=== PATIENT | male | born 1955 | race Caucasian/White ===

== ENCOUNTER → 2017-02-21 | Outpatient (CLI) | payer BC | END | disposition home or self-care (01) | LOC: C.PATHSPEC 17:19 | PROVIDERS: ATTEND Plastic Surgery | DX: C44.319 Basal cell carcinoma of skin of other parts of face (principal) ==

== ENCOUNTER 2020-12-29 19:12 | Inpatient (IN) ==
[2020-12-29] MEDS ORDERED: ALBUT/IPRATROP 3MG/0.5MG NEB 3 ML VIAL NEB ONE (21:24)
[2020-12-29] MEDS ORDERED: MAGNESIUM SULFATE / D5W 1 GM/100 ML BAG IV STA (21:25)
[2020-12-29] MEDS ORDERED: methylPREDNISolone 125 MG/2 ML VIAL IV STA (21:25)
[2020-12-29] MEDS ORDERED: ACETAMINOPHEN 500 MG TAB PO STA (21:40)
--- NOTE | 2020-12-29 21:41 | Emergency Department Note ---
Impression & Plan Community acquired bacterial pneumonia, Elevated troponin I level, Abnormal EKG, Elevated temperature ED Provider Note NAME: CHRISSY SUAREZ AGE: 65 SEX: M : 1955 ARRIVES VIA: Walk-In INFORMANT: Patient, ED PROVIDER(S): Nakul Bradshaw MD CHIEF COMPLAINT: Coughing HPI: This 65-year-old male who presents to the emergency department with chills and a cough that has been ongoing for the past 4 weeks. The patient reports he thought the cough was from swimming. He reports taking prednisone as well as a Z-Jon prescribed from his primary care physician for the coughing without any relief in the symptoms. The patient reports that talking makes his coughing worse and nothing seems to make it better. The patient has been taking honey as well as the prednisone and Z-Jon without any relief. The patient denies ever smoking. ROS: See above HPI for pertinent positives & negatives. A total of 10 systems reviewed and were otherwise negative. PAST MEDICAL HISTORY: See Below PAST SURGICAL HISTORY: See Below FAMILY HISTORY: See Below SOCIAL HISTORY: No smoking history HOME MEDICATIONS: See Below ALLERGIES: See Below VITALS: See Below PHYSICAL EXAMINATION: VITAL SIGNS - Vital signs and nursing notes were reviewed. GENERAL - 65-year-old male appearing stated age who is in no acute distress. Communicates well with provider and answers questions appropriately. SKIN - Without rashes. HEAD - NC/AT. EYES - PERRL with EOMI bilaterally. Sclera anicteric. Palpebral conjunctiva pink and moist with no injection noted. EARS - No deformities of external structures noted on gross examination bilaterally. NOSE - Midline and without cyanosis. No epistaxis or purulent drainage noted. Septum midline without deviation or septal hematoma noted. MOUTH/OROPHARYNX - Without perioral cyanosis. Buccal mucosa pink and moist and without leukoplakia. Tongue midline with equal elevation of palate bilaterally. No tonsillar hypertrophy, erythema, or exudates noted. dentition noted. NECK - Neck with FROM. Supple to palpation. LUNGS - Chest wall symmetric without accessory muscle use, intercostals retractions, or central cyanosis. Normal vesicular breath sounds CTA B/L. Wheezing present b/l at bases CARDIAC - RRR with S1/S2. No murmur, rubs, or gallops appreciated. ABDOMEN - Abdominal contour without pulsations or visible masses. BS normoactive all four quadrants. No tenderness, palpable masses, hepatosplenomegaly, or ascites noted. EXTREMITIES - No clubbing or peripheral cyanosis. No pretibial edema present. +3/5 radial, posterior tibial, and dorsalis pedis pulses palpated throughout. +5/5 strength noted in UE/LE bilaterally. NEUROLOGIC - Cranial nerves II through XII grossly intact. Sensory intact to light touch throughout. Patellar reflexes +2/4. PSYCH - A&Ox3 and cooperates fully with examiner. Pt is very pleasant and interacts well with examiner. MEDICAL DECISION MAKING: Patient was seen and evaluated as above in room C10. Review was performed of nursing notes and vital signs. I did review pertinent previous visits and patient history. After obtaining a thorough history and physical examination the above work up was performed. This 65-year-old male who presents emergency department with severe coughing that has not been getting better despite being on a Z-Jon as well as prednisone. The patient also has an elevation in his white blood cell count at 19,000 which may be consistent with steroid use as well as an elevation in his troponin. His EKG also shows dynamic changes. Based on this I do feel that the patient should be admitted to the hospital. Blood cultures were obtained and the patient was started on broad-spectrum antibiotics including Zosyn and Levaquin. I did discuss the case with the hospitalist service who did agree to admit the patient. Patient is in agreement with the treatment plan. Chest x-ray was interpreted by me and shows bilateral pneumonia. In addition CAT scan was also interpreted by me and is consistent with pneumonia An order was placed for continuous cardiac monitoring. The monitor shows a rate of 84 with Normal SInus rhythm. The patient was evaluated during a period of high volume and high acuity during the global COVID-19 pandemic, and that diagnosis was suspected/considered upon their initial presentation. Their evaluation, treatment and testing was consistent with current guidelines for patients who present with complaints or symptoms that may be related to COVID-19. Patient was seen while provider was wearing PPE. Triage Nursing notes reviewed. Prior medical records reviewed Vital Signs: reviewed and remarkable for fever Differential diagnosis: Reactive airway disease, pneumonia, pneumothorax, COPD, CHF, infections, cardiac ischemia, pulmonary embolism, musculoskeletal, gastrointestinal, as well as other pathologies. ER treatment provided: See below Diagnostics interpreted by me: ECG: EKG shows normal sinus rhythm left axis deviation ST depressions in the lateral leads QTC is 452 ventricular rate is 96 EKG is compared to 02/07/2008 ventricular rate has increased by 47 Laboratory studies: As stated above and show below. Imaging studies: See below Consultation(s): Internal Medicine Past Med/Surg History Social History Smoking Status: Never smoker Hx Alcohol Use: Yes Alcohol type: beer Hx Substance Use: No Preferred Language: Kyrgyz Communication Ability: Effective Load Out Worker Required: No Beliefs That Will Affect Care: None Current Living Situation: Spouse Other Information That Helps Us Care for You: No Feels Safe at Home: Yes Safety Concerns: Feels Safe At This Time Assistive Devices: Glasses Allergies Allergies Allergy/AdvReac Type Severity Reaction Status Date / Time POLLEN Allergy Intermediate ITCHY Uncoded 12/29/20 22:22 EYES, SNEEZING, CONGESTION Home Meds Home Medications Medication Instructions Recorded Confirmed azithromycin 250 mg tablet 250 mg PO DAILY 12/29/20 12/29/20 ibuprofen 200 mg tablet (Advil) 200 mg PO DIRECTED PRN 12/29/20 12/29/20 loratadine 10 mg tablet (Claritin) 10 mg PO DAILY 12/29/20 12/29/20 prednisone 20 mg tablet 0 mg PO DIRECTED 12/29/20 12/29/20 Results & Data (ED) Vital Signs Vital Signs - 24 hr 12/29/20 21:25 12/29/20 21:34 12/29/20 21:47 Temperature 38.3 C H Temperature Source Oral Pulse Rate 80 Pulse Rate [Apical] 84 80 Pulse Rate from SpO2 Sensor 81 Respiratory Rate 20 26 H 18 Respiratory Effort / Characteristics Non-Labored Spontaneous Respiratory Depth Normal Blood Pressure 153/76 H Blood Pressure [Right Arm] 153/84 H Blood Pressure Mean 101 Blood Pressure Mean [Right Arm] 107 Pulse Oximetry 96 97 95 Oxygen Delivery Method Room Air Room Air Laboratory Data Result diagrams: 12/30/20 04:50 12/30/20 04:50 Lab Results 12/29/20 12/29/20 12/29/20 Range/Units 21:35 21:35 22:30 WBC 18.99 H (4.8-10.8) K/uL RBC 4.94 (4.7-6.1) M/uL Hgb 16.0 (14.0-18.0) g/dL Hct 45.5 (42-52) % MCV 92.1 (80-100) fL MCH 32.4 (25-34) pg MCHC 35.2 (32-36) g/dL RDW Std Deviation 45.1 (36.4-46.3) fL RDW Coeff of Shane 13.5 (11.5-14.5) % Plt Count 220 (130-400) K/uL MPV 11.3 H (7.4-10.4) fL Immature Gran % (Auto) 0.3 % Neut % (Auto) 89.7 % Lymph % (Auto) 5.1 % Montgomery % (Auto) 4.7 % Eos % (Auto) 0.2 % Baso % (Auto) 0.0 % Neut # (Auto) 17.03 H (1.4-6.5) K/uL Lymph # (Auto) 0.97 L (1.2-3.4) K/uL Montgomery # (Auto) 0.90 H (0.11-0.59) K/uL Eos # (Auto) 0.03 (0-0.5) K/uL Baso # (Auto) 0.00 (0-0.2) K/uL Immature Gran # (Auto) 0.06 H (0.00-0.02) K/uL Sodium 140 (136-145) mmol/L Potassium 3.6 (3.5-5.1) mmol/L Chloride 104 (98-107) mmol/L Carbon Dioxide 32 (21-32) mmol/L Anion Gap 4.0 (3-11) BUN 20 H (7-18) mg/dl Creatinine 1.24 (0.6-1.4) mg/dl Est Cr Clr Drug Dosing 70.9 ml/min Est GFR ( Amer) 71.3 ml/min Est GFR (Non-Af Amer) 61.5 ml/min BUN/Creatinine Ratio 16.0 (10-20) Glucose 86 (70-99) mg/dl Calcium 9.7 (8.5-10.1) mg/dl Total Bilirubin 0.6 (0.2-1) mg/dl AST 18 (15-37) U/L ALT 74 (12-78) U/L Alkaline Phosphatase 57 (45-117) U/L Troponin I 0.174 H* (0-0.045) ng/ml NT-Pro-B Natriuret Pep 463 (0-900) pg/ml Total Protein 7.0 (6.4-8.2) gm/dl Albumin 4.0 (3.4-5.0) gm/dl Globulin 3.0 (2.5-4.0) gm/dl Albumin/Globulin Ratio 1.3 (0.9-2) COVID-19 Eval Order Covid19 at [facility] SARS-CoV-2 (PCR) (Negative) 12/29/20 Range/Units 22:30 WBC (4.8-10.8) K/uL RBC (4.7-6.1) M/uL Hgb (14.0-18.0) g/dL Hct (42-52) % MCV (80-100) fL MCH (25-34) pg MCHC (32-36) g/dL RDW Std Deviation (36.4-46.3) fL RDW Coeff of Shane (11.5-14.5) % Plt Count (130-400) K/uL MPV (7.4-10.4) fL Immature Gran % (Auto) % Neut % (Auto) % Lymph % (Auto) % Montgomery % (Auto) % Eos % (Auto) % Baso % (Auto) % Neut # (Auto) (1.4-6.5) K/uL Lymph # (Auto) (1.2-3.4) K/uL Montgomery # (Auto) (0.11-0.59) K/uL Eos # (Auto) (0-0.5) K/uL Baso # (Auto) (0-0.2) K/uL Immature Gran # (Auto) (0.00-0.02) K/uL Sodium (136-145) mmol/L Potassium (3.5-5.1) mmol/L Chloride (98-107) mmol/L Carbon Dioxide (21-32) mmol/L Anion Gap (3-11) BUN (7-18) mg/dl Creatinine (0.6-1.4) mg/dl Est Cr Clr Drug Dosing ml/min Est GFR ( Amer) ml/min Est GFR (Non-Af Amer) ml/min BUN/Creatinine Ratio (10-20) Glucose (70-99) mg/dl Calcium (8.5-10.1) mg/dl Total Bilirubin (0.2-1) mg/dl AST (15-37) U/L ALT (12-78) U/L Alkaline Phosphatase (45-117) U/L Troponin I (0-0.045) ng/ml NT-Pro-B Natriuret Pep (0-900) pg/ml Total Protein (6.4-8.2) gm/dl Albumin (3.4-5.0) gm/dl Globulin (2.5-4.0) gm/dl Albumin/Globulin Ratio (0.9-2) COVID-19 Eval Order SARS-CoV-2 (PCR) NEGATIVE (Negative) Administered Medications Guaifenesin (Guaifenesin 600 Mg Tabcr) 600 mg PO Q12 OZ Stop: 01/29/21 08:59 Last Admin: 12/30/20 20:10 Dose: 600 mg Documented by: [id number] Admin: 12/30/20 08:32 Dose: 600 mg Documented by: [id number] Ceftriaxone Sodium 2,000 mg/ (Dextrose) 70 mls @ 140 mls/hr IV DAILY OZ; Protocol Stop: 01/06/21 08:59 Last Infusion: 12/30/20 10:41 Dose: 0 mls/hr Documented by: [id number] Admin: 12/30/20 08:32 Dose: 140 mls/hr Documented by: [id number] Loratadine (Loratadine 10 Mg Tab) 10 mg PO DAILY OZ Stop: 01/29/21 08:59 Last Admin: 12/30/20 08:32 Dose: 10 mg Documented by: [id number] Metoprolol Succinate (Metoprolol Succ 25mg Ext Rel Tab) 25 mg PO BID OZ Stop: 01/29/21 08:59 Last Admin: 12/30/20 20:10 Dose: 25 mg Documented by: [id number] Admin: 12/30/20 08:32 Dose: 25 mg Documented by: [id number] Discontinued Medications Acetaminophen (Acetaminophen 500 Mg Tab) 1,000 mg PO NOW STA Stop: 12/29/20 21:41 Last Admin: 12/29/20 22:26 Dose: 1,000 mg Documented by: [id number] Albuterol (Albut/Ipratrop 3mg/0.5mg Neb 3 Ml Vial) 12 ml NEB ONE ONE Stop: 12/29/20 21:25 Last Admin: 12/29/20 21:47 Dose: 12 ml Documented by: [id number] Albuterol (Albuterol Hfa 8 Gm Inhaler) 2 puffs INH NOW ONE Stop: 12/29/20 22:33 Last Admin: 12/30/20 00:14 Dose: 2 puffs Documented by: [id number] Albuterol (Albut/Ipratrop 3mg/0.5mg Neb 3 Ml Vial) 3 ml NEB QIDR OZ Stop: 01/29/21 06:59 Last Admin: 12/30/20 11:32 Dose: 3 ml Documented by: [id number] Admin: 12/30/20 07:35 Dose: 3 ml Documented by: [id number] Magnesium Sulfate/Dextrose (Magnesium Sulfate / D5w) 1 gm in 100 mls @ 100 mls/hr IV NOW STA Stop: 12/29/20 22:24 Last Infusion: 12/30/20 00:14 Dose: 0 mls/hr Documented by: [id number] Admin: 12/29/20 22:26 Dose: 100 mls/hr Documented by: [id number] Methylprednisolone 40 mg/ (Syringe) 0.64 mls @ 1.5 mls/min IV Q8H [facility] Stop: 01/29/21 05:59 Last Admin: 12/30/20 14:53 Dose: 1.5 mls/min Documented by: [id number] Admin: 12/30/20 05:39 Dose: 1.5 mls/min Documented by: [id number] Ioversol (Optiray 320 125ml) 125 ml IV ONCE ONE Stop: 12/30/20 00:50 Last Admin: 12/30/20 00:49 Dose: 90 ml Documented by: [id number] Levofloxacin (Levofloxacin 750 Mg Tab) 750 mg PO ONE ONE Stop: 12/29/20 22:32 Last Admin: 12/30/20 00:14 Dose: 750 mg Documented by: [id number] Methylprednisolone (Methylprednisolone 125 Mg/2 Ml Vial) 125 mg IV NOW STA Stop: 12/29/20 21:26 Last Admin: 12/29/20 22:26 Dose: 125 mg Documented by: [id number] Metoprolol Succinate (Metoprolol Succ 25mg Ext Rel Tab) 25 mg PO NOW STA Stop: 12/30/20 01:30 Last Admin: 12/30/20 02:14 Dose: 25 mg Documented by: [id number] Discharge Plan Visit Data Chief Complaint: Cough Stated Complaint: cough, fever ED Provider: Nakul Bradshaw Discharge Problem: Community acquired bacterial pneumonia, Elevated troponin I level, Abnormal EKG, Elevated temperature Patient Disposition: Admitted As Inpatient Discharge Instructions Interventions: ED Discharge Assessment Last Done: 12/30/20 00:23
[2020-12-29 22:08] LABS: Calcium 9.7 mg/dl (8.5-10.1); Creatinine Clr Calc Pharmacy 70.9 ml/min; Est GFR (African American) 71.3 ml/min; Est GFR (Non-African American) 61.5 ml/min; Potassium 3.6 mmol/L (3.5-5.1)
[2020-12-29 22:09] LABS: Eosinophils # (auto) 0.03 K/uL (0-0.5); Eosinophils % (auto) 0.2 %; Hematocrit (blood only) 45.5 % (42-52); Immature Granulocytes # (auto) 0.06 K/uL (0.00-0.02); Immature Granulocytes % (auto) 0.3 %; Lymphocytes # (auto) 0.97 K/uL (1.2-3.4); Lymphocytes % (auto) 5.1 %; Mean Corpuscular Hemoglobin 32.4 pg (25-34); Mean Corpuscular Hgb Conc 35.2 g/dL (32-36); Mean Corpuscular Volume 92.1 fL (80-100); Mean Platelet Volume 11.3 fL (7.4-10.4); Monocytes % (auto) 4.7 %; Neutrophils # (auto) 17.03 K/uL (1.4-6.5); Neutrophils % (auto) 89.7 %; Platelet Count 220 K/uL (130-400); RDW Coefficient of Variation 13.5 % (11.5-14.5); RDW Standard Deviation 45.1 fL (36.4-46.3); Red Blood Count 4.94 M/uL (4.7-6.1); White Blood Count 18.99 K/uL (4.8-10.8)
[2020-12-29 22:10] LABS: Albumin Globulin Ratio 1.3 (0.9-2); Bilirubin,Total 0.6 mg/dl (0.2-1)
[2020-12-29] MEDS ORDERED: levoFLOXacin 750 MG TAB PO ONE (22:31)
[2020-12-29] MEDS ORDERED: ALBUTEROL HFA 8 GM INHALER INH ONE (22:32)
[2020-12-29 23:00] LABS: Troponin I 0.174 ng/ml (0-0.045)
--- NOTE | 2020-12-29 23:51 | History & Physical Report ---
Date of Service December 29, 2020 Assessment & Plan (1) Elevated troponin I level: Plan: Elevated troponin I level/abnormal EKG- EKG with ST depressions laterally Troponin 0.174 upon admission The patient will be admitted to telemetry for serial cardiac enzymes, serial E KG's, cardiac rhythm monitoring and a 2-D echocardiogram with Dopplers. Aspirin 81 mg daily Metoprolol succinate 25 mg p.o. twice daily, with first dose tonight (2) Abnormal EKG: Plan: See above (3) Upper respiratory infection: Plan: Ceftriaxone 2 g IV daily Levofloxacin 500 mg IV daily Methylprednisolone 40 mg IV every 8 hours Duonebs every 4 hours while awake and every 2 hours when necessary. Guaifenesin extended release 600 mg p.o. twice daily Hycodan syrup 5 mils p.o. every 4 hours as needed cough Of note, patient was COVID-19 negative in the ED Consult cardiology (4) Elevated temperature: Plan: Most likely cause at this point is upper respiratory infection History of Present Illness Chief Complaint: The patient presents to the emergency department with acute worsening of generalized myalgias, weakness and cough this morning, with original symptoms beginning about 4 weeks ago. Primary Care Provider: Uday Malave Jr, DO The patient is a 65-year-old male with a past medical history including allergic rhinitis, who presents to the emergency department with 4 weeks of intermittent chills, cough, generalized myalgias did not respond to prednisone and azithromycin started last week, and actually worsened this morning. He denies any recent travels or sick exposures. He does not remember any illness like this in the past. He denies any associated chest pain. Pertinent laboratories in the emergency department: WBC 18.99 with left shift, troponin 0.174, COVID-19 negative. Maximum temperature in the ED was 100.9 F Imaging studies included chest x-ray and CT angiography of chest: No evidence for PE, pleural effusion or pneumothorax. No pericardial effusion no significant mediastinal or hilar lymphadenopathy. EKG showed normal sinus rhythm at 96 bpm, with incomplete right bundle branch block, and ST depressions in leads V4 through V6, and less so 1 and aVL. Allergies Allergy/AdvReac Type Severity Reaction Status Date / Time POLLEN Allergy Intermediate ITCHY Uncoded 12/29/20 22:22 EYES, SNEEZING, CONGESTION Home Medications Medication Instructions Recorded Confirmed Type azithromycin 250 mg tablet 250 mg PO DAILY 12/29/20 12/29/20 History ibuprofen 200 mg tablet (Advil) 200 mg PO DIRECTED PRN 12/29/20 12/29/20 History loratadine 10 mg tablet (Claritin) 10 mg PO DAILY 12/29/20 12/29/20 History prednisone 20 mg tablet 0 mg PO DIRECTED 12/29/20 12/29/20 History Past Med/Surg History Social History Smoking Status: Never smoker Hx Alcohol Use: Yes Alcohol type: beer Hx Substance Use: No Preferred Language: Korean Communication Ability: Effective Oral Communication Instructor Required: No Beliefs That Will Affect Care: None Current Living Situation: Spouse Other Information That Helps Us Care for You: No Feels Safe at Home: Yes Safety Concerns: Feels Safe At This Time Assistive Devices: Glasses Review of Systems Review of Systems: The patient denies chest pain, palpitations, lower extr emity swelling, sore throat, sweats, weight change, nausea, vomiting, diarrhea , constipation, abdominal pain, pelvic pain, blood in urine or stool, dysuria, urinary frequency or urgency, lightheadedness, dizziness, headache, memory loss, loss of consciousness, rash, abnormal bruising or bleeding, imbalance, focal or generalized weakness, numbness or tingling in arms or legs, back or neck pain, or night sweats. The review of systems is otherwise negative other than for that already noted above, and at least 10 systems have been reviewed. Physical Exam Physical Exam: The patient is awake, alert and oriented 3, well developed and well nourished, normocephalic and atraumatic, lying in bed and in no acute distress, with intermittent nonproductive cough HEENT--PERRL, EOMI, mucous membranes and oropharynx mildly dry. Neck--supple. No JVD. No bruits. Thyroid normal, trachea midline, no adenopathy. Heart--normal S1 and S2. No murmurs, rubs or gallops. Lungs--clear bilaterally, no respiratory distress, no accessory muscle use. Abdomen--normal bowel sounds and soft. Nontender. Nondistended, no hernias or masses, no organomegaly. Extremities--no cyanosis or clubbing. No edema. Dermatologic--normal skin turgor, normal color, no abnormal lymph nodes, no rash. Neurologic--cranial nerves II through XII grossly intact. Rheumatologic--normal range of motion. Psychiatric--normal affect. Results & Data Results & Data ([facility]) Vital Signs (Past 12 Hours) Vital Signs Temp Pulse Pulse Resp BP BP Pulse Ox 12/29/20 21:47 80 18 95 12/29/20 21:34 80 26 H 153/76 H 97 12/29/20 21:25 100.9 F H 84 20 153/84 H 96 12/29/20 19:14 99.3 F 92 H 20 134/80 96 Laboratory Results Laboratory Results WBC 18.99 K/uL (4.8-10.8) H 12/29/20 21:35 RBC 4.94 M/uL (4.7-6.1) 12/29/20 21:35 Hgb 16.0 g/dL (14.0-18.0) 12/29/20 21:35 Hct 45.5 % (42-52) 12/29/20 21:35 MCV 92.1 fL (80-100) 12/29/20 21:35 MCH 32.4 pg (25-34) 12/29/20 21:35 MCHC 35.2 g/dL (32-36) 12/29/20 21:35 RDW Std Deviation 45.1 fL (36.4-46.3) 12/29/20 21:35 RDW Coeff of Shane 13.5 % (11.5-14.5) 12/29/20 21:35 Plt Count 220 K/uL (130-400) 12/29/20 21:35 MPV 11.3 fL (7.4-10.4) H 12/29/20 21:35 Immature Gran % (Auto) 0.3 % 12/29/20 21:35 Neut % (Auto) 89.7 % 12/29/20 21:35 Lymph % (Auto) 5.1 % 12/29/20 21:35 [place] % (Auto) 4.7 % 12/29/20 21:35 Eos % (Auto) 0.2 % 12/29/20 21:35 Baso % (Auto) 0.0 % 12/29/20 21:35 Neut # (Auto) 17.03 K/uL (1.4-6.5) H 12/29/20 21:35 Lymph # (Auto) 0.97 K/uL (1.2-3.4) L 12/29/20 21:35 [place] # (Auto) 0.90 K/uL (0.11-0.59) H 12/29/20 21:35 Eos # (Auto) 0.03 K/uL (0-0.5) 12/29/20 21:35 Baso # (Auto) 0.00 K/uL (0-0.2) 12/29/20 21:35 Immature Gran # (Auto) 0.06 K/uL (0.00-0.02) H 12/29/20 21:35 Sodium 140 mmol/L (136-145) 12/29/20 21:35 Potassium 3.6 mmol/L (3.5-5.1) 12/29/20 21:35 Chloride 104 mmol/L (98-107) 12/29/20 21:35 Carbon Dioxide 32 mmol/L (21-32) 12/29/20 21:35 Anion Gap 4.0 (3-11) 12/29/20 21:35 BUN 20 mg/dl (7-18) H 12/29/20 21:35 Creatinine 1.24 mg/dl (0.6-1.4) 12/29/20 21:35 Est Cr Clr Drug Dosing 70.9 ml/min 12/29/20 21:35 Est GFR ( Amer) 71.3 ml/min 12/29/20 21:35 Est GFR (Non-Af Amer) 61.5 ml/min 12/29/20 21:35 BUN/Creatinine Ratio 16.0 (10-20) 12/29/20 21:35 Glucose 86 mg/dl (70-99) 12/29/20 21:35 Calcium 9.7 mg/dl (8.5-10.1) 12/29/20 21:35 Total Bilirubin 0.6 mg/dl (0.2-1) 12/29/20 21:35 AST 18 U/L (15-37) 12/29/20 21:35 ALT 74 U/L (12-78) 12/29/20 21:35 Alkaline Phosphatase 57 U/L (45-117) 12/29/20 21:35 Troponin I 0.174 ng/ml (0-0.045) H* 12/29/20 21:35 NT-Pro-B Natriuret Pep 463 pg/ml (0-900) 12/29/20 21:35 Total Protein 7.0 gm/dl (6.4-8.2) 12/29/20 21:35 Albumin 4.0 gm/dl (3.4-5.0) 12/29/20 21:35 Globulin 3.0 gm/dl (2.5-4.0) 12/29/20 21:35 Albumin/Globulin Ratio 1.3 (0.9-2) 12/29/20 21:35 COVID-19 Eval Order Covid19 at [facility] 12/29/20 22:30 SARS-CoV-2 (PCR) NEGATIVE (Negative) 12/29/20 22:30 Diagnostic Findings [facility] Patient: CHRISSY SUAREZ (Male) : 59 Status: IP Date: 12/30/20 00:53 Room #: 109 History: DRY COUGH FOR ONE MONTH, R/O PE Slices: [id number] Priors: Tech: Yuri Kyle @ [phone] Exams: CTA CHEST Contrast: IV Amt: 90 ML OPTIRAY 320 Accession Numbers: [id number] Referring Physician: REFERRED SELF Preliminary Findings Only See Final Report For Complete Findings CTA CHEST: No evidence for pulmonary embolism. Curvilinear subsegmental changes in the posterior lung bases are presumed atelectasis. Infection is considered less likely. No pleural effusion or pneumothorax. The thoracic aorta and cardiac chambers are unremarkable. No pericardial effusion. No significant mediastinal or hilar adenopathy. No acute osseous or significant overlying soft tissue abnormality. Radiologist: Phil Bhat MD Study ready at 01:01 and initial results transmitted at 01:08 Results also transmitted to 1st Floor ICU @ [phone] (Fax) *This report constitutes a preliminary interpretation only. Non-acute findings felt to be unrelated to the clinical presentation may not be discussed in this report. The study will be interpreted and a final report will be generated by the local Radiologist the following shift. To reach the hospital radiology department call [phone]. If a discrepancy is found between the preliminary and final interpretations of this study, please notify us via our Client Portal at [email or web address].You can also fax this report with a description of the discrepancy, or include the final report, to our daytime fax number [phone].If faxing, please indicate the severity of discrepancy using one of the following categories: [ ] 1 - Agree/Informational [ ] 2 - Unlikely to Affect Management [ ] 3 - Possible Eventual Change of Management [ ] 4 - Probable Immediate Change of Management For all other patient related information, please fax us at [phone]. [id number] [phone] ECG Additional Comments: CHRISSY SUAREZ ID:[id number] 29-DEC-2020 22:59:05 [facility]- EDSTAT ROUTINE RETRIEVAL Normal sinus rhythm Left axis deviation Incomplete right bundle branch block Nonspecific ST abnormality Abnormal ECG When compared with ECG of 07-FEB-2008 23:47, Vent. rate has increased BY 47 BPM Incomplete right bundle branch block is now Present 25mm/s 10mm/mV 150Hz 9.0.9 12SL 241 HD VITA: 12 Referred by: REFERRED SELF Unconfirmed Vent. rate 96 BPM IA interval 184 ms QRS duration 110 ms QT/QTc 358/452 ms P-R-T axes 30 -30 23 1955 (65 yr) Male 1in Room: Loc:15 Refrigeration Repair Supervisor:Katheryn Pedersen Code Status & VTE Plan Code Status Full code VTE Prophylaxis Plan VTE Prophylaxis will be ordered: Yes PG Care Time/CCT Total # of Minutes Spent Total Time Spent with Patient: Total time spent is greater than 50% in coordination of care (as documented) at patient's floor/unit and/or counseling patient: Coding Level of Care Code 80085 Initial Inpt Care Lvl 3 Diagnoses Elevated troponin I level R77.8 Abnormal EKG R94.31 Elevated temperature R50.9 Upper respiratory infection J06.9
[2020-12-30] MEDS ORDERED: HYDROcodone/HOMATROPINE SYRUP 5MG/1.5MG 5ML UDP PO PRN (00:07)
[2020-12-30] MEDS ORDERED: OPTIRAY 320 125ml IV ONE (00:49)
[2020-12-30] MEDS ORDERED: ACETAMINOPHEN 325 MG TAB PO PRN (01:10)
[2020-12-30] MEDS ORDERED: NITROGLYCERIN SL 0.4 MG/TAB TAB SL PRN (01:10)
[2020-12-30] MEDS ORDERED: ONDANSETRON INJ 2 MG/ML 2 ML VIAL IV PRN (01:10)
[2020-12-30] MEDS ORDERED: METOPROLOL SUCC 25MG EXT REL TAB PO STA (01:29)
[2020-12-30 05:09] LABS: Hematocrit (blood only) 42.8 % (42-52); Mean Corpuscular Hemoglobin 32.1 pg (25-34); Mean Corpuscular Volume 91.6 fL (80-100); Platelet Count 202 K/uL (130-400); RDW Coefficient of Variation 13.6 % (11.5-14.5); RDW Standard Deviation 44.9 fL (36.4-46.3); Red Blood Count 4.67 M/uL (4.7-6.1); White Blood Count 23.65 K/uL (4.8-10.8)
[2020-12-30 05:28] LABS: Basophils # (auto) 0.01 K/uL (0-0.2); Immature Granulocytes # (auto) 0.08 K/uL (0.00-0.02); Immature Granulocytes % (auto) 0.3 %; Lymphocytes # (auto) 0.51 K/uL (1.2-3.4); Lymphocytes % (auto) 2.2 %; Monocytes # (auto) 0.56 K/uL (0.11-0.59); Monocytes % (auto) 2.4 %; Neutrophils # (auto) 22.49 K/uL (1.4-6.5); Neutrophils % (auto) 95.1 %; RBC Morphology Unremarkable
[2020-12-30 05:38] LABS: Albumin Level 3.7 gm/dl (3.4-5.0); BUN Creatinine Ratio 14.1 (10-20); Creatinine Clr Calc Pharmacy 76.4 ml/min; Est GFR (African American) 78.1 ml/min; Est GFR (Non-African American) 67.4 ml/min; Magnesium 2.3 mg/dl (1.8-2.4); Potassium 4.2 mmol/L (3.5-5.1)
[2020-12-30] MEDS: methylPREDNISolone 40 MG in SYRINGE 0 ML IV SCH ×2 (05:39→14:53)
[2020-12-30 05:42] LABS: Albumin Globulin Ratio 1.3 (0.9-2); Bilirubin,Total 0.7 mg/dl (0.2-1); Globulin 2.9 gm/dl (2.5-4.0); Total Protein 6.6 gm/dl (6.4-8.2); Troponin I 0.106 ng/ml (0-0.045)
[2020-12-30] MEDS: ALBUT/IPRATROP 3MG/0.5MG NEB 3 ML VIAL NEB SCH ×2 (07:35→11:32)
--- NOTE | 2020-12-30 08:01 | XRay Report ---
SINGLE VIEW CHEST CLINICAL HISTORY: Wheezing. FINDINGS: An AP, portable, upright chest radiograph is compared to study dated 12/29/2010. The heart i s enlarged. The pulmonary vasculature is noncongested. There is elevation of the right hemidiaphragm with bibasilar airspace opacities. No large pleural effusion or pneumothorax is seen. The skeletal st ructures are osteopenic. The bony thorax is grossly intact. IMPRESSION: 1. Cardiomegaly without radiographic evidence of congestive failure. 2. Bibasilar airspace opacities likely represent scarring/atelectasis. Correlate clinically for evide nce of a superimposed infectious/inflammatory pneumonitis. ACT 112: Negative or not required by law. Electronically signed by: Chace Dow M.D. 12/30/2020 8:00 AM
[2020-12-30] MEDS: LORATADINE 10 MG TAB PO SCH (08:32)
[2020-12-30] MEDS: guaiFENesin 600 MG TABCR PO SCH ×2 (08:32→20:10)
[2020-12-30] MEDS: cefTRIAXone SODIUM 2,000 MG in DEXTROSE 5% 50 ML IV SCH (08:32)
[2020-12-30] MEDS: METOPROLOL SUCC 25MG EXT REL TAB PO SCH ×2 (08:32→20:10)
--- NOTE | 2020-12-30 08:42 | CT Scan Report ---
CT ANGIOGRAM OF THE CHEST CLINICAL HISTORY: Cough and wheezing. COMPARISON STUDY: Chest x-ray dated 12/29/2020. TECHNIQUE: Following the IV administration of 90 cc of Optiray 320, CT angiogram of the chest was per formed from the upper abdomen to the thoracic inlet utilizing the pulmonary embolus protocol. Images are reviewed in the axial, sagittal, and coronal planes. 3-D MIPS images are created and assessed. IV contrast was administered without complication. A dose lowering technique was utilized adhering to the principles of ALARA. CT DOSE: 341.59 mGy.cm FINDINGS: Thyroid: Imaged portions of the thyroid gland are normal in size and attenuation. Thoracic aorta: The thoracic aorta is normal in caliber and demonstrates standard 3-vessel arch anato my. No dissection is seen. Pulmonary vasculature: The pulmonary trunk is normal in caliber. There are no filling defects identif ied in main, lobar, or segmental pulmonary branches to suggest pulmonary embolus. Heart: The heart enlarged and without pericardial effusion. There are coronary artery calcifications. Lungs and pleural spaces: There is elevation of the right hemidiaphragm. Dependent airspace opacities likely represent scarring/atelectasis. No pleural effusion is identified. The trachea and central ai rways are clear. Mediastinum: There is no mediastinal lymphadenopathy. Deborah: Clear. Axillae: There is no axillary lymphadenopathy. Upper abdomen: Diverticulosis is noted in the partially imaged left colon. There is a tiny hiatal her jose alejandro. Skeletal structures: No lytic or blastic bony lesions are seen. IMPRESSION: 1. There is no evidence of pulmonary embolus in the main, lobar, or segmental pulmonary arteries. 2. Cardiomegaly and coronary artery calcification. 3. Dependent airspace opacities likely represent scarring/atelectasis. Clinical correlation will be r equired. 4. Additional findings as above. ACT 112: Negative or not required by law. Electronically signed by: Chace Dow M.D. 12/30/2020 8:41 AM
[2020-12-30] MEDS ORDERED: ALBUT/IPRATROP 3MG/0.5MG NEB 3 ML VIAL NEB PRN (13:01)
--- NOTE | 2020-12-30 13:30 | XCELERA ---
[id number]
--- NOTE | 2020-12-30 16:18 | Electrocardiogram Report ---
Test Reason : Blood Pressure : / mmHG Vent. Rate : 096 BPM Atrial Rate : 096 BPM P-R Int : 184 ms QRS Dur : 110 ms QT Int : 358 ms P-R-T Axes : 030 -30 023 degrees QTc Int : 452 ms Normal sinus rhythm Left axis deviation Nonspecific ST abnormality Abnormal ECG When compared with ECG of 07-FEB-2008 23:47, Vent. rate has increased BY 47 BPM Confirmed by Keaton Campos ([id number]) on 12/30/2020 4:18:22 PM Referred By: REFERRED SELF Confirmed By:Keaton Campos
--- NOTE | 2020-12-30 16:24 | Electrocardiogram Report ---
Test Reason : Blood Pressure : / mmHG Vent. Rate : 059 BPM Atrial Rate : 059 BPM P-R Int : 204 ms QRS Dur : 092 ms QT Int : 436 ms P-R-T Axes : 048 -22 013 degrees QTc Int : 431 ms Sinus bradycardia Otherwise normal ECG When compared with ECG of 29-DEC-2020 22:59, (unconfirmed) Vent. rate has decreased BY [address] no longer depressed in Anterolateral leads T wave amplitude has increased in Anterior leads Confirmed by Keaton Campos ([id number]) on 12/30/2020 4:23:27 PM Referred By: REFERRED SELF Confirmed By:Keaton Campos
--- NOTE | 2020-12-30 18:07 | Hospitalist Progress Note ---
Date of Service December 30, 2020 Assessment & Plan (1) Community acquired bacterial pneumonia: Plan: While to a degree his presentation was somewhat nonspecific, putting together all of the clinical data it does seem like he presented with an early community- acquired pneumonia. His CT does show bibasilar findings that match his lung exam, and while they are somewhat unimpressive, the fact that his had him evaluated probably within 1 to 2 hours of symptom onset makes me suspicious that we simply caught his pneumonia as it was very early. He had been on Zithromax prior to the pneumoniawill utilize ceftriaxone/doxycycline. He appears nontoxic and overall fairly well. We discussed that I would like to see some improvement in his white count heading into tomorrow, but as long as his white count continues to improve, we can anticipate home on p.o. antibiotics and close outpatient follow-up tomorrow. (2) Abnormal EKG: Plan: He did show a degree of what appeared to be somewhat dynamic anterior ST changes, in the context of a febrile illness. This combined with his elevated troponin would beg the question of demand ischemia. Fortunately his echocardiogram shows no wall motion abnormalities, and does show a little bit of LVH. Given his very significant exercise tolerance and regular exercise regimen, it is somewhat unlikely that he would have coronary disease creating demand ischemia, and yet at the same time the clinical picture "on paper" appears consistent with this. To this end, we will have him on aspirin 81 mg daily, treat the pneumonia, and then more formally evaluate the situation with a stress echo in about a week. During that time we discussed simply taking it easy. (3) DVT prophylaxis: Plan: ambulation (4) Discharge planning issues: Plan: Anticipate home tomorrow, as long as his white count shows improvement Admission and Anticipated Discharge Date Admission Date: December 29, 2020 Subjective Feeling better overall, notes that he had a cough for about the last month, may be a bit of a sore throat at one point in time, called his PCP who started him on Zithromax and steroids, things did not really seem to change, then the night of admission he spiked a feverhis was concerned that he might have developed a variant of Covid and immediately urged him to get tested. He has not really had much of any change in his cough, has not really had much shortness of breath, but did notice a little bit more dyspnea on exertion over the last few weeks, may be even a little bit of chest pressure when he was runningof note he notes this in the context of running 5 miler and may be having to stop at 4 miles instead. He notes mostly constitutional symptoms of fevers and chills, no other focal symptoms. He exercises somewhere between 4 to 6 days a week swimming and running, is never a smoker, notes his cholesterols have been up and down some through the years although he does not know specific numbers, denies any significant family history of heart diseaseeven noting that his dad has smoked for most of his life and is still alive at 90. Review of Systems Review of Systems: ROS otherwise negative except for as above Physical Exam Physical Exam: General he is awake alert oriented x3, pleasant no distress. He does have a bit of a dry cough during conversation. HEENT normocephalic atraumatic mucous membranes moist. Cardio regular without rubs murmurs or gallops. Lungs with bibasilar rales otherwise clear to auscultation no rales rhonchi or wheezes elsewhere good effort no accessory muscle use. Skin shows no rashes no pallor or icterus. Neuro without focal deficits. Results & Data Results & Data ([facility]) Vital Signs (Past 12 Hours) Vital Signs Temp Pulse Pulse Resp BP BP Pulse Ox 12/30/20 17:00 97.9 F 67 18 144/83 H 95 12/30/20 16:00 66 16 141/76 H 94 12/30/20 15:00 64 12/30/20 14:58 72 12/30/20 13:55 68 121/83 93 12/30/20 12:56 75 106/71 96 12/30/20 12:00 16 12/30/20 11:56 71 114/70 94 12/30/20 11:32 59 L 16 95 12/30/20 11:29 97.9 F 12/30/20 10:56 61 110/64 95 12/30/20 09:56 58 L 16 134/72 94 12/30/20 08:55 63 18 120/70 94 12/30/20 08:00 97.9 F 63 12/30/20 07:56 65 18 128/66 95 12/30/20 07:35 63 18 94 PG Care Time/CCT Total # of Minutes Spent Total Time Spent with Patient: Total time spent is greater than 50% in coordination of care (as documented) at patient's floor/unit and/or counseling patient: Coding Level of Care Code 25221 Subseq Hosp Care Lvl 3 Diagnoses Community acquired bacterial pneumonia J15.9 Abnormal EKG R94.31 DVT prophylaxis Z29.9 Discharge planning issues Z02.9
[2020-12-30] MEDS: DOXYCYCLINE HYCLATE 100 MG in DEXTROSE 5% 100 ML IV SCH (21:00)
[2020-12-31] MEDS ORDERED: levoFLOXacin/D5W 500 MG/100 ML BAG IV SCH
[2020-12-31] MEDS: METOPROLOL SUCC 25MG EXT REL TAB PO SCH (07:47)
[2020-12-31] MEDS: LORATADINE 10 MG TAB PO SCH (07:47)
[2020-12-31] MEDS: guaiFENesin 600 MG TABCR PO SCH (07:47)
[2020-12-31 07:51] LABS: Basophils # (auto) 0.01 K/uL (0-0.2); Eosinophils # (auto) 0.01 K/uL (0-0.5); Hematocrit (blood only) 44.8 % (42-52); Hemoglobin 15.5 g/dL (14.0-18.0); Immature Granulocytes # (auto) 0.08 K/uL (0.00-0.02); Immature Granulocytes % (auto) 0.4 %; Lymphocytes # (auto) 2.13 K/uL (1.2-3.4); Mean Corpuscular Hemoglobin 32.5 pg (25-34); Mean Corpuscular Hgb Conc 34.6 g/dL (32-36); Mean Corpuscular Volume 93.9 fL (80-100); Mean Platelet Volume 11.1 fL (7.4-10.4); Monocytes # (auto) 1.45 K/uL (0.11-0.59); Monocytes % (auto) 6.8 %; Neutrophils # (auto) 17.67 K/uL (1.4-6.5); Neutrophils % (auto) 82.8 %; Platelet Count 219 K/uL (130-400); RDW Coefficient of Variation 14.3 % (11.5-14.5); RDW Standard Deviation 48.9 fL (36.4-46.3); Red Blood Count 4.77 M/uL (4.7-6.1); White Blood Count 21.35 K/uL (4.8-10.8)
[2020-12-31] MEDS: DOXYCYCLINE HYCLATE 100 MG in DEXTROSE 5% 100 ML IV SCH (07:54)
[2020-12-31] MEDS: cefTRIAXone SODIUM 2,000 MG in DEXTROSE 5% 50 ML IV SCH (07:54)
--- NOTE | 2020-12-31 08:23 | Electrocardiogram Report ---
Test Reason : Blood Pressure : / mmHG Vent. Rate : 056 BPM Atrial Rate : 056 BPM P-R Int : 202 ms QRS Dur : 090 ms QT Int : 454 ms P-R-T Axes : 051 -19 002 degrees QTc Int : 438 ms Sinus bradycardia Otherwise normal ECG When compared with ECG of 30-DEC-2020 06:22, No significant change was found Confirmed by Carl Lopez ([id number]) on 12/31/2020 8:22:40 AM Referred By: REFERRED SELF Confirmed By:Carl Lopez
--- NOTE | 2020-12-31 18:35 | Discharge Summary ---
Date of Service December 31, 2020 Admission HPI Per Admitting Provider The patient is a 65-year-old male with a past medical history including allergic rhinitis, who presents to the emergency department with 4 weeks of intermittent chills, cough, generalized myalgias did not respond to prednisone and azithromycin started last week, and actually worsened this morning. He denies any recent travels or sick exposures. He does not remember any illness like this in the past. He denies any associated chest pain. Pertinent laboratories in the emergency department: WBC 18.99 with left shift, troponin 0.174, COVID-19 negative. Maximum temperature in the ED was 100.9 F Imaging studies included chest x-ray and CT angiography of chest: No evidence for PE, pleural effusion or pneumothorax. No pericardial effusion no significant mediastinal or hilar lymphadenopathy. EKG showed normal sinus rhythm at 96 bpm, with incomplete right bundle branch block, and ST depressions in leads V4 through V6, and less so 1 and aVL. Principal Diagnosis Community-acquired pneumonia, possible sepsis present on admission (SIRS criteria marginal with borderline temp, transient elevation of respiratory rate, and leukocytosis that was adulterated by prior steroid use). Elevated troponin Discharge Exam In general he is awake and alert pleasant no distress. HEENT normocephalic atraumatic mucous membranes moist. Breathing unlabored no accessory muscle use good effort. Lungs show bibasilar rales to have resolved. No focal neuro deficits. Skin without rashes, pallor, icterus. Discharge Data Allergies Allergy/AdvReac Type Severity Reaction Status Date / Time POLLEN Allergy Intermediate ITCHY Uncoded 12/29/20 22:22 EYES, SNEEZING, CONGESTION Consultations 12/29/20 23:12 ED Decision to Admit Stat Ordered Studies 12/29/20 23:01 CT angio chest PE protocol Urgent Hospital Course (1) Community acquired bacterial pneumonia: While to a degree his presentation was somewhat nonspecific, putting together all of the clinical data it does seem like he presented with an early community-acquired pneumonia. His CT does show bibasilar findings that matched his lung exam, and while they are somewhat unimpressive, the fact that his had him evaluated probably within 1 to 2 hours of symptom onset makes me suspicious that we simply caught his pneumonia as it was very early. He had been on Zithromax prior to the pneumoniaand improved on ceftriaxone/doxycycline. Doing quite well, with hindsight, his marked leukocytosis was likely 1 part reaction to infection, but also 1 part preceding steroid treatment. His white count is trending down and his CRP is reassuringly improving. He appears quite stable for homewe will finish out a course of antibiotics with cefdinir and doxycycline. Outpatient follow-up with PCP. (2) Abnormal EKG: He did show a degree of what appeared to be somewhat dynamic anterior ST changes, in the context of a febrile illness. This combined with his elevated troponin would beg the question of demand ischemia. Fortunately his echocardiogram shows no wall motion abnormalities, and does show a little bit of LVH. Given his very significant exercise tolerance and regular exercise regimen, it is somewhat unlikely that he would have coronary disease creating demand ischemia, and yet at the same time the clinical picture "on paper" appears consistent with this. To this end, we will have him on aspirin 81 mg daily, treat the pneumonia, and then more formally evaluate the situation with a stress echo in about a week. During that time we discussed simply taking it easy. Case management was given a prescription for setting up the stress echo, results to Dr. Malave. (3) DVT prophylaxis: ambulation utilized during his stay (4) Discharge planning issues: Stable for home. With patient's permission, case was reviewed with his son who is also a hospitalist physicianshowed him CT, EKG, labs, etc. Total Time Total Time Spent Total Time Spent (In Minutes): >30 Discharge Plan Discharge Items Patient Disposition: Home - Self-Care Reason For Visit: ELEVATED TROPONIN Discharge Diagnosis: Community-acquired pneumonia, elevated troponin (see below) Activity: Resume your previous activity Non-emergency contact: Primary Care Provider Call non-emergency contact if: you have any medication questions Follow-up/Referrals: Uday Malave Jr, [Primary Care Provider] - 01/06/21 9:45 am Diet: Regular Addtl Attending Provider Instructions: Community-acquired pneumonia: -While initially it was not obviously clear, once all of the details are put together, it appears that you likely had a viral upper respiratory infection that had been causing the ongoing cough for the last several weeks, and while your immune system was "distracted" by this, you then developed a pneumonia. As we discussed, typically a pneumonia happens when we inhale bacteria that are in her nose and throat, this happens every day, but typically our immune system recognizes the bacteria and clears it out before it has a chance to grow. When the pneumonia occurs, there are circumstances where the bacteria is new to our immune system, or our immune system is "distracted" (as appears to have been the case with you) and the bacteria get a chance to overgrowth. -Fortunately, because you got seen essentially right as the pneumonia was starting, this has been very easy to turn around. -We will finish out antibiotics with 5 more days of cefdinir 300 mg twice a day (next dose tonight) and doxycycline 100 mg twice a day (next dose tonight as well). -Cefdinir is usually very well-tolerated, every now and then it could upset someone stomachit is okay to take it with food -Doxycycline is very well-tolerated huge majority of the time, but it has to odd side effects that we will want to take steps to prevent: -Sun sensitivity: While I have only seen in a handful of times, unfortunate souls can become so sun sensitive from doxycycline that 15 minutes of exposure can create a blistering sunburn. Because we do not want you to find out "the hard way" if that is you, I would recommend using sunscreen and protective clothing as though you are at the beach. -Esophagitis/esophageal ulcers: Again quite rare, but when it happens it is pretty miserable, doxycycline can fairly quickly cause a painful ulcer in your esophagus. Typically this happens if the pill gets "stuck" on the way down, so to prevent that, I would definitely recommend taking it with food, and with a lot of water to wash it down. If you were to feel it "stuck" then I would definitely recommend drinking a lot of water right away to wash it down. -Again to be clear, I do not see either of the side effects often at all, but because they can inflict a lot of misery when they happen, I usually instruct everyone on doxycycline to take these preventative measures. -Recovery from a pneumonia is unknowingly slow. Fortunately because you got treated probably almost as the pneumonia was developing, you will hopefully get better faster than most people, but what we see is that it often takes a month to get back to "good as new" after someone is sick with a pneumonia. Typically the fever/chills go away, the cough usually goes away, but a nondescript fatigue remains. Set a "finish line" of about Dayif you are seeing that you are slowly getting better, and back to normal by then, that would be somewhere in the range of expected. However, if you notice that you are getting worse/feeling weaker/having new symptoms, or you do not feel back to yourself by around , then we would want Dr. Malave to look into things further. (Of course the potential complicating factor of feeling back to "good as new" would be if there is anything of substance with her cardiac work-upsee below.) Elevated troponin -Your initial EKG, and troponin levels, would look like a person whose heart was under a decent amount of stress from being sick with the pneumonia. The EKG showed what we would describe as ST depressions down the front wall of your heart, which improved by the next morning. Your troponin levels, while mildly elevated, would show a degree of strain or stress on your heart. Under normal circumstances, we frequently will view this as a "failed stress test" (albeit under unfair conditions), but with the hint that the patient may have underlying coronary artery disease that they were unaware of. What makes this very atypical with you is your high level of cardiovascular fitness. Because of this, we do certainly see times where respiratory infectionsparticularly the viral part of itleading to a bit of an immune system cross-reaction, creating a myocarditis type picture. It is quite possible this is what is going on. -To be safe, we need to review the potential for coronary disease as our diagnosis until it is more formally ruled out. -The most rational way to do this would be to do a stress echocardiogramto formally/objectively look at supply versus demand as it relates to coronary blood flow. Given that it would be somewhat difficult to do a treadmill test while still reasonably acutely ill from the pneumonia, I would recommend that we take this week to treat the pneumonia, and we will work on getting the stress test set up for next week. Expect a call from [facility] cardiology's office with a date/time for the stress testhowever, if you do not hear from the office by Monday, please call to ensure that things have not slipped through the cracks. -If the stress test looks negative, and you continue to feel better, then it would be very safe to assume that this was an inflammatory/myocarditis type picture simply related to the respiratory infection. If the stress test were to show concerning signs for coronary disease, or even if the stress test is negative but you are unable to return to your baseline of high fitness, then we would definitely want you to formally see cardiology for further evaluation. -Until we complete our work-up, I would recommend you take an 81 mg aspirin daily. If the stress test is negative, then you can definitely stop the aspirin. -Likewise, until we do the stress test next week, I would want you taking it easy and holding off on running/swimming/etc. -As one other point of "housekeeping" because anti-inflammatory medications can also prevent blood vessels from dilating when they need to, I would have you avoid ibuprofen/other anti-inflammatories until we have formal results back from the stress test Viral prodrome/cough -Most likely, the cough that you have had for the last 3 or 4 weeks was secondary to a viral respiratory infection. This can create irritation of your upper airway that takes a while to calm down. Our vocal cords/throat have nerves in them to trigger coughing whenever there is anything therethis is a safety mechanism to prevent choking/aspiration, but can be a real annoyance when inflammation of the upper airway is what is causing the cough. This usually just needs to calm down on its own, and unfortunately can take a month or more to do so. As best you can, try to have a degree of vocal rest until the cough goes away. Because you have to talk a lot for your job, understandably do what you need to do, but otherwise try to refrain from using your voiceparticular in any "big and loud" way such as shouting/cheering/singing. Pending Studies at Discharge: No Stand-Alone Forms: My [facility] Cloudy Days, Smoking Cessation Medications and DC Order Prescriptions: New cefdinir 300 mg capsule 300 mg PO BID 5 Days Qty: 10 RF: 0 doxycycline hyclate 100 mg capsule 100 mg PO BID 5 Days Qty: 10 RF: 0 aspirin 81 mg tablet,delayed release (DR/EC) 81 mg PO DAILY Qty: 14 RF: 0 Continued ibuprofen [Advil] 200 mg Tablet 200 mg PO DIRECTED PRN (Reason: Pain) RF: 0 loratadine [Claritin] 10 mg Tablet 10 mg PO DAILY RF: 0 Discontinued azithromycin 250 mg tablet 250 mg PO DAILY RF: 0 prednisone 20 mg tablet 0 mg PO DIRECTED RF: 0 Discharge Orders: Discharge Order (Routine); Ordered 12/31/20 Ordered By: Fabio Garcias Admission Data Admit Date/Time: 12/29/20 23:49 Attending Provider: Fabio Garcias Admit Provider: Roque Nicole Primary Care Provider: Uday Malave Jr Other Providers: Roque Nicole ; Noah Adamson Other Interventions: Discharge Summary Assessment (RN) Last Done: 12/31/20 10:40 Coding Level of Care Code D/C DAY MANAGEMENT >30 MINS Diagnoses Community acquired bacterial pneumonia J15.9 Abnormal EKG R94.31 DVT prophylaxis Z29.9 Discharge planning issues Z02.9
== END 2020-12-31 11:04 | disposition home or self-care (01) | DRG 195 ==
LOC: ED 19:12 → 1E 23:49 → SUATTDRO 23:49 → 1E 12-30 00:23 → 2S 12-30 16:54